=== PATIENT | female | born 1960 ===

== ENCOUNTER 2020-10-15 05:55 | Day surgery (SDC) | payer OTHER ==
[~2020-10-15 05:55] MED LIST: COZAAR50 MG PO; EFFEXOR XR75 MG PO
== END 2020-10-15 09:46 | disposition home or self-care (01) ==
LOC: CIR.AMB 05:55
PROVIDERS: ATTEND Surgery Surgery of the Hand
DX: D21.22 Benign neoplasm of connective and other soft tissue of left lower limb, including hip (principal); M25.842 Other specified joint disorders, left hand; Z42.8 Encounter for other plastic and reconstructive surgery following medical procedure or healed injury; Z20.822 Contact with and (suspected) exposure to COVID-19

== ENCOUNTER 2024-05-14 10:32 | Outpatient (CLI) | payer OTHER | END 2024-05-14 10:36 | disposition home or self-care (01) | LOC: SONOGRAMA 10:32 | PROVIDERS: ATTEND Pathology Anatomic Pathology & Clinical Pathology | DX: D44.0 Neoplasm of uncertain behavior of thyroid gland (principal); E04.2 Nontoxic multinodular goiter ==